=== PATIENT | female | born 1960 | race Caucasian/White ===

== ENCOUNTER 2018-12-26 13:11 | Outpatient (CLI) | payer MEDICARE, MEDICAID ==
[2018-12-26] MEDS ORDERED: LEVO75TA PO (13:42)
== END 2018-12-26 23:59 | disposition home or self-care (01) ==
LOC: STAR 13:11
PROVIDERS: ATTEND Surgery
DX: Z02.9 Encounter for administrative examinations, unspecified (principal)

== ENCOUNTER 2018-12-30 08:26 | Day surgery (SDC) | payer MEDICARE, MEDICAID ==
[~2018-12-30] VITALS: Ht 141 cm; Wt 57.0 kg
[~2018-12-30 08:26] MED LIST: LEVO75TA PO
[2018-12-30] MEDS ORDERED: LACTATED RINGERS 1,000 ML IV SCH (08:39)
[2018-12-30 08:51] VITALS: BP 118/65
[2018-12-30] MEDS ORDERED: ACETAMINOPHEN 500 MG TABLET PO ONE (09:00)
[2018-12-30] MEDS ORDERED: FENTANYL PF 100 MCG/2ML IV PRN ×2 (09:30→13:30)
[2018-12-30] MEDS ORDERED: ONDANSETRON 2MG/ML, 2ML IV PRN (09:30)
[2018-12-30] MEDS ORDERED: MEPERIDINE/PF 25MG/ML,1ML IVPush PRN ×2 (09:30→13:30)
[2018-12-30] MEDS ORDERED: hydrALAzine 20 MG/ML, 1ML IV PRN ×2 (09:30→13:30)
[2018-12-30] MEDS ORDERED: LABETALOL 5MG/ML, 20ML IV PRN ×2 (09:30→13:30)
[2018-12-30] MEDS ORDERED: EPHEDRINE 50 MG/ML, 1ML IVPush PRN (09:30)
[2018-12-30] MEDS ORDERED: PROMETHAZINE 25 MG/ML, 1ML IV PRN ×2 (09:30→13:30)
[2018-12-30] MEDS ORDERED: HYDROmorphone 2 MG/ML, 1ML IVPush PRN ×2 (09:30→13:30)
[2018-12-30] MEDS ORDERED: HYDROcodone/APAP 7.5-325MG/15ML UDC PO PRN (09:30)
[2018-12-30] MEDS ORDERED: FENTANYL PF 100 MCG/2ML ONE ×2 (11:35→13:54)
[2018-12-30] MEDS ORDERED: MIDAZOLAM 1 MG/ML, 2ML ONE (11:35)
[2018-12-30] MEDS ORDERED: BUPIVACAINE/PF 0.25% ONE (12:05)
[2018-12-30] MEDS ORDERED: OXYcodone 5 MG/5 ML ORAL.SOL UDC PO PRN (13:30)
[2018-12-30] MEDS ORDERED: HALOPERIDOL 5 MG/ML IV PRN (13:30)
[2018-12-30] MEDS ORDERED: CEFAZOLIN 1,000 MG ONE (14:19)
[2018-12-30] MEDS ORDERED: ONDANSETRON 2MG/ML, 2ML ONE (14:19)
[2018-12-30] MEDS ORDERED: ROCURONIUM 10MG/ML,5ML ONE (14:19)
[2018-12-30] MEDS ORDERED: PROPOFOL 10 MG/ML, 20ML ONE (14:19)
[2018-12-30] MEDS ORDERED: GLYCOPYRROLATE 0.2MG/1ML, 5ML ONE (14:19)
[2018-12-30] MEDS ORDERED: SUCCINYLCHOLINE 20 MG/ML, 10ML ONE (14:19)
[2018-12-30] MEDS ORDERED: NEOSTIGMINE 1 MG/ML, 10ML ONE (14:19)
[2018-12-30] MEDS ORDERED: DEXAMETHASONE 4 MG/ML, 1ML ONE (14:19)
== END 2018-12-30 16:40 | disposition home or self-care (01) ==
LOC: OUT 08:26
PROVIDERS: ATTEND Surgery
DX: N63.10 Unspecified lump in the right breast, unspecified quadrant (principal); N60.11 Diffuse cystic mastopathy of right breast; E03.9 Hypothyroidism, unspecified; K21.9 Gastro-esophageal reflux disease without esophagitis; Z79.890 Hormone replacement therapy; Z88.0 Allergy status to penicillin; Z88.8 Allergy status to other drugs, medicaments and biological substances
CPT/HCPCS: 19120; 88305; 88341; 88342; J0330; J0690; J1100; J2250; J2405; J2704; J2710; J3010; J3490; J7120